=== PATIENT | male | born 1965 | race Caucasian/White ===

== ENCOUNTER 2025-01-26 10:12 | Emergency (ER) | payer MEDICAID ==
[~2025-01-26] VITALS: Ht 165.1 cm; Wt 69.0 kg
[2025-01-26 10:17] VITALS: O2SAT 98
[2025-01-26 12:21] LABS: BASOPHILS % 0.7 % (0.0-2.0); EOSINOPHILS % 1.4 % (0.0-5.0); HEMATOCRIT. 41.5 % (42.0-52.0); HEMOGLOBIN. 14.5 g/dL (14.0-18.0); LYMPHOCYTES % 41.1 % (20.0-50.0); MEAN PLATELET VOLUME 9.2 fl (7.4-10.4); MONOCYTES % 8.5 % (2.0-8.0); NEUTROPHILS % 48.3 % (40.0-76.0); PLATELET 233 x1000/uL (130-400); RED BLOOD CELL COUNT 4.41 mill/uL (4.7-6.1); RED CELL DISTRIBUTION WIDTH 13.1 % (11.6-14.6)
[2025-01-26 12:34] LABS: CREATININE 1.0 mg/dL (0.6-1.3); UREA NITROGEN BLOOD 10 mg/dL (9-23)
[2025-01-26 12:35] LABS: PROTEIN TOTAL 7.8 g/dL (6.0-8.3)
[2025-01-26 12:36] LABS: ASPARTATE AMINOTRANSFERASE 52 IU/L (<34); BILIRUBIN TOTAL 0.4 mg/dL (0.1-1.0)
[2025-01-26] MEDS ORDERED: INSULIN REGULAR (HUMULIN R) 1000UNITS/10ML VIAL IV ONE (12:45)
[2025-01-26] MEDS: INSULIN REGULAR (HUMULIN R) 1000UNITS/10ML VIAL IV ONE (13:16)
[2025-01-26 14:52] VITALS: BP 140/89; PULSE 96; RESP 18; TEMP 37; O2SAT 98
== END 2025-01-26 14:54 | disposition home or self-care (01) ==
LOC: ER 10:12
DX: S01.01XA Laceration without foreign body of scalp, initial encounter (principal); F10.129 Alcohol abuse with intoxication, unspecified; E78.5 Hyperlipidemia, unspecified; M54.2 Cervicalgia; Z79.899 Other long term (current) drug therapy; W01.0XXA Fall on same level from slipping, tripping and stumbling without subsequent striking against object, initial encounter; Y93.89 Activity, other specified; Y92.89 Other specified places as the place of occurrence of the external cause; Y99.8 Other external cause status; Y90.9 Presence of alcohol in blood, level not specified
CPT/HCPCS: 80053; 82010; 82962; 85025; 36415; 70450; 72125; 12002; 96374; 99285; J1815; Z7610

== ENCOUNTER 2025-02-04 14:44 | Emergency (ER) | payer SELFPAY ==
[~2025-02-04] VITALS: Ht 160 cm; Wt 69.0 kg
[2025-02-04 14:47] VITALS: O2SAT 98
[2025-02-04 14:57] VITALS: BP 110/56; PULSE 60; RESP 16; TEMP 37; O2SAT 99
[2025-02-04] MEDS ORDERED: BO1 TP (15:19)
== END 2025-02-04 15:30 | disposition home or self-care (01) ==
LOC: ER 14:44
DX: S01.01XD Laceration without foreign body of scalp, subsequent encounter (principal); X58.XXXD Exposure to other specified factors, subsequent encounter
CPT/HCPCS: 99282